=== PATIENT | female | born 1990 | race Caucasian/White ===

== ENCOUNTER 2020-10-02 13:37 | Emergency (ER) | payer OTHER ==
[2020-10-02] MEDS ORDERED: ROBAXIN500 MG PO (15:15)
[2020-10-02] MEDS ORDERED: NAPROXEN500 MG PO (15:15)
== END 2020-10-02 15:30 | disposition home or self-care (01) ==
LOC: FER 13:37
DX: M54.16 Radiculopathy, lumbar region (principal); M75.101 Unspecified rotator cuff tear or rupture of right shoulder, not specified as traumatic; Z87.81 Personal history of (healed) traumatic fracture; F17.200 Nicotine dependence, unspecified, uncomplicated
CPT/HCPCS: 72110; 73030; J1885

== ENCOUNTER 2020-12-17 13:31 | Emergency (ER) | payer OTHER ==
[~2020-12-17 13:31] MED LIST: NAPROXEN500 MG PO; ROBAXIN500 MG PO
[2020-12-17] MEDS ORDERED: IBUPROFEN800 MG PO (16:40)
[2020-12-17] MEDS ORDERED: CEPHALEXIN500 M1 PO (16:41)
== END 2020-12-17 20:00 | disposition home or self-care (01) ==
LOC: FER 13:31
DX: S91.342A Puncture wound with foreign body, left foot, initial encounter (principal); L08.9 Local infection of the skin and subcutaneous tissue, unspecified; Z23 Encounter for immunization; F17.210 Nicotine dependence, cigarettes, uncomplicated; W22.8XXA Striking against or struck by other objects, initial encounter
CPT/HCPCS: 73610; 90471; 90715

== ENCOUNTER 2021-01-27 16:29 | Emergency (ER) | payer OTHER ==
[~2021-01-27 16:29] MED LIST changes: +CEPHALEXIN500 M1 PO; +IBUPROFEN800 MG PO
[2021-01-27 17:44] LABS: BILIRUBIN NEGATIVE (NEGATIVE); BLOOD NEGATIVE Ery/uL (NEGATIVE); CLARITY CLEAR (CLEAR); COLOR YELLOW (YELLOW); GLUCOSE (U) NORMAL (NORMAL); LEUKOCYTES NEGATIVE Leu/uL (NEGATIVE); NITRITE NEGATIVE (NEGATIVE); PROTEIN NEGATIVE (NEGATIVE); SPECIFIC GRAVITY 1.025 (1.001-1.030); UROBILINOGEN 0.2 mg/dL (0.2-1.0)
[2021-01-27 18:17] LABS: INFLUENZA A NAA NEGATIVE (NEGATIVE)
[2021-01-27 18:21] LABS: CORONAVIRUS 2019 SARS-COV-2 POSITIVE (NEGATIVE)
[2021-01-27 18:46] LABS: BASOPHIL 0.6 % (0-2); EOSINOPHIL 1.9 % (0-5); HCT 40.3 % (37.0-47.0); HGB 13.9 g/dl (12.5-16.0); LYMPHOCYTE 22.4 % (15-48); MCH 32.1 pg (25.0-31.0); MCHC 34.5 g/dL (32.0-36.0); MCV 93.1 fL (78.0-100.0); MONOCYTE 9.3 % (0-12); MPV 9.1 fL (6.0-9.5); NEUTROPHIL 64.1 % (41-80); NRBC 0; PLT 243 K/uL (150-400); RBC 4.33 M/uL (4.20-5.40); RDW 13.2 % (11.5-14.0); WBC 4.8 K/uL (4.0-10.5)
[2021-01-27 19:02] LABS: BUN/CREAT RATIO (CALC) 21.7 RATIO; CREATININE 0.83 mg/dL (0.51-0.95); POTASSIUM 4.1 mmol/L (3.5-5.1)
[2021-01-27] MEDS ORDERED: MEDROL 4MG DOSEP4 MG PO (20:07)
[2021-01-27] MEDS ORDERED: ZPAK PO (20:07)
== END 2021-01-27 20:15 | disposition home or self-care (01) ==
LOC: FER 16:29
PROVIDERS: Nurse Practitioner Family
DX: U07.1 COVID-19 (principal)
CPT/HCPCS: 36415; 71045; 80048; 81003; 83605; 84145; 85025; 94640; 94664; 99283; J7030; U0002

== ENCOUNTER 2021-03-22 01:52 | Emergency (ER) | payer OTHER ==
[~2021-03-22 01:52] MED LIST changes: +MEDROL 4MG DOSEP4 MG PO; +ZPAK PO
[2021-03-22] MEDS ORDERED: MOBIC15 MG PO (03:02)
== END 2021-03-22 03:11 | disposition home or self-care (01) ==
LOC: FER 01:52
DX: M72.2 Plantar fascial fibromatosis (principal); F17.210 Nicotine dependence, cigarettes, uncomplicated
CPT/HCPCS: 99283

== ENCOUNTER 2021-05-12 18:24 | Emergency (ER) | payer OTHER ==
[~2021-05-12 18:24] MED LIST changes: +MOBIC15 MG PO
[2021-05-12 20:04] LABS: BILIRUBIN NEGATIVE (NEGATIVE); BLOOD 3+ Ery/uL (NEGATIVE); CLARITY CLEAR (CLEAR); COLOR YELLOW (YELLOW); GLUCOSE (U) NORMAL (NORMAL); LEUKOCYTES 1+ Leu/uL (NEGATIVE); NITRITE NEGATIVE (NEGATIVE); PROTEIN 1+ mg/dL (NEGATIVE); SPECIFIC GRAVITY >=1.030 (1.001-1.030); UROBILINOGEN 0.2 mg/dL (0.2-1.0)
[2021-05-12 20:19] LABS: BACTERIA 3+; URINARY RBC TNTC; URINARY WBC TNTC
[2021-05-12] MEDS ORDERED: VIBRAMYCIN100 MG PO (20:53)
[2021-05-12] MEDS ORDERED: PYRIDIUM200 MG PO (20:53)
[2021-05-12] MEDS ORDERED: IBUPROFEN800 MG PO (20:53)
[2021-05-12] MEDS ORDERED: PERCOCET 5-3251 EACH PO (20:53)
[2021-05-15 00:06] LABS: CHLAMYDIA TRACHOMATIS, NAA Negative (Negative); NEISSERIA GONORRHOEAE, NAA Negative (Negative)
== END 2021-05-12 21:50 | disposition home or self-care (01) ==
LOC: FER 18:24
PROVIDERS: Emergency Medicine; Emergency Medicine Emergency Medical Services
DX: N30.91 Cystitis, unspecified with hematuria (principal); Z87.891 Personal history of nicotine dependence
CPT/HCPCS: 81001; 87070; 87076; 87088; 87186; 87491; 87591; 96372; J0696; J1885

== ENCOUNTER 2021-06-11 18:05 | Emergency (ER) | payer OTHER ==
[~2021-06-11 18:05] MED LIST changes: +PERCOCET 5-3251 EACH PO; +PYRIDIUM200 MG PO; +VIBRAMYCIN100 MG PO
[2021-06-11 23:44] LABS: CORONAVIRUS 2019 SARS-COV-2 NEGATIVE (NEGATIVE); INFLUENZA A NAA POSITIVE (NEGATIVE)
[2021-06-12 01:09] LABS: BUN/CREAT RATIO (CALC) 11.3 RATIO; CREATININE 0.71 mg/dL (0.51-0.95); POTASSIUM 3.7 mmol/L (3.5-5.1)
[2021-06-12 01:23] LABS: HCT 37.7 % (37.0-47.0); HGB 13.3 g/dl (12.5-16.0); MCH 32.4 pg (25.0-31.0); MCHC 35.3 g/dL (32.0-36.0); MCV 91.7 fL (78.0-100.0); MPV 9.7 fL (6.0-9.5); PLT 195 K/uL (150-400); RBC 4.11 M/uL (4.20-5.40); RDW 13.2 % (11.5-14.0); WBC 3.9 K/uL (4.0-10.5)
[2021-06-12 01:24] LABS: BASOPHIL 0.8 % (0-2); LYMPHOCYTE 23.2 % (15-48); MONOCYTE 11.5 % (0-12); NEUTROPHIL 61.5 % (41-80); NRBC 0
[2021-06-12] MEDS ORDERED: TAMIFLU 75MG CA75 MG PO (01:40)
[2021-06-12] MEDS ORDERED: ONDANSETRON ODT4 MG PO (01:42)
[2021-06-12] MEDS ORDERED: TESSALON PERLE100 MG PO (01:42)
== END 2021-06-12 02:10 | disposition home or self-care (01) ==
LOC: FER 18:05
PROVIDERS: Internal Medicine
DX: J10.1 Influenza due to other identified influenza virus with other respiratory manifestations (principal); R06.02 Shortness of breath; F17.210 Nicotine dependence, cigarettes, uncomplicated; Z20.822 Contact with and (suspected) exposure to COVID-19
CPT/HCPCS: 36415; 71045; 80048; 84145; 85025; 96372; U0002

== ENCOUNTER 2021-09-11 17:35 | Emergency (ER) | payer OTHER ==
[~2021-09-11 17:35] MED LIST changes: +ONDANSETRON ODT4 MG PO; +TAMIFLU 75MG CA75 MG PO; +TESSALON PERLE100 MG PO
[2021-09-11 19:14] LABS: BILIRUBIN NEGATIVE (NEGATIVE); BLOOD NEGATIVE Ery/uL (NEGATIVE); CLARITY CLEAR (CLEAR); COLOR YELLOW (YELLOW); GLUCOSE (U) NORMAL (NORMAL); LEUKOCYTES NEGATIVE Leu/uL (NEGATIVE); NITRITE NEGATIVE (NEGATIVE); PROTEIN NEGATIVE (NEGATIVE); SPECIFIC GRAVITY 1.025 (1.001-1.030); UROBILINOGEN 0.2 mg/dL (0.2-1.0)
[2021-09-11 19:16] LABS: BASOPHIL 0.5 % (0-2); EOSINOPHIL 1.7 % (0-5); HCT 42.8 % (37.0-47.0); HGB 14.5 g/dl (12.5-16.0); MCH 31.5 pg (25.0-31.0); MCHC 33.9 g/dL (32.0-36.0); MCV 92.8 fL (78.0-100.0); MONOCYTE 6.8 % (0-12); MPV 9.6 fL (6.0-9.5); NEUTROPHIL 73.8 % (41-80); NRBC 0; PLT 231 K/uL (150-400); RBC 4.61 M/uL (4.20-5.40); RDW 13.2 % (11.5-14.0); WBC 8.7 K/uL (4.0-10.5)
[2021-09-11 19:22] LABS: SQUAMOUS EPITHELIAL CELLS RARE; URINARY RBC RARE; URINARY WBC RARE
[2021-09-11 19:34] LABS: ALBUMIN 3.9 g/dL (3.4-5.0); BILIRUBIN - TOTAL 0.3 mg/dL (0.2-1.0); BUN/CREAT RATIO (CALC) 22.2 RATIO; CREATININE 0.72 mg/dL (0.51-0.95); GLOBULIN (CALCULATION) 3.8 g/dL; POTASSIUM 4.2 mmol/L (3.5-5.1); TOTAL PROTEIN 7.7 g/dL (6.4-8.2)
== END 2021-09-11 22:28 | disposition home or self-care (01) ==
LOC: FER 17:35
PROVIDERS: Physician Assistant
DX: R10.9 Unspecified abdominal pain (principal); F17.210 Nicotine dependence, cigarettes, uncomplicated
CPT/HCPCS: 36415; 80053; 81001; 83690; 85025